=== PATIENT | male | born 1955 | race Caucasian/White ===

== ENCOUNTER 2017-07-08 16:24 | Observation (INO) | payer OTHER ==
--- NOTE | 2017-07-08 16:38 | CPEKG ---
Heart Rate: 78 RR Interval: 769 P-R Interval: 144 QRSD Interval: 106 QT Interval: 376 QTC Interval: 429 P Bigelow: 49 QRS Bigelow: -35 T Wave Bigelow: 23 EKG Severity - BORDERLINE ECG - EKG Impression: SINUS RHYTHM EKG Impression: BORDERLINE IVCD WITH LAD Electronically Signed By: Marcell Leija 08-Jul-2017 16:47:21
--- NOTE | 2017-07-08 16:42 | EDPHY ---
H & P Time Seen by Provider: 07/08/17 16:43 HPI/ROS: CHIEF COMPLAINT: Chest tightness HISTORY OF PRESENT ILLNESS: This 62-year-old man has a history of hypertension on lisinopril and hydrochlorothiazide. He describes having chest tightness that lasted about an hour every couple of weeks for the last several months. Today started in the middle of the day around noon and has lasted until now. He describes central chest tightness which was associated with "a lot more work than usual going up the stairs "and shortness of breath with exertion. He went up 2 flights of stairs and said that if he had to go up a 3rd flight he would have had to stop to rest which is very unusual for him. No radiation. No diaphoresis. No nausea vomiting. REVIEW OF SYSTEMS: Eye: no change in vision ENT: no sore throat Cardiac: No palpitations or syncope Pulmonary: No cough or hemoptysis Abdomen: no vomiting, diarrhea, abdominal pain Musculoskeletal: No leg pain or leg swelling Skin: no rash Neuro: no headache Constitutional: no fever : no urinary symptoms A comprehensive 10 point review of systems is otherwise negative aside from elements mentioned in the history of present illness. PAST MEDICAL HISTORY: Hypertension, unknown cholesterol, negative for diabetes Family history includes coronary disease with his mother having angina in her late 40s and eventually dying of an CT, negative for venous thromboembolism Social history: Nonsmoker, no recent travel or immobilization General Appearance: Alert and conversant, cooperative. Eyes: No scleral icterus. ENT, Mouth: Normal mucous membranes. Respiratory: Normal respiratory effort, breath sounds equal, lungs are clear to auscultation. Cardiovascular: Regular rate and rhythm. Gastrointestinal: Abdomen is soft and non tender. Neurological: Alert and oriented x3. Normally conversant. Face symmetric, normal movement and sensation in all extremities. Skin: Warm and dry, no rashes. Musculoskeletal: No peripheral edema and no joint swelling. Psychiatric: Not agitated. Emergency Department course/MDM: Oral aspirin. Moderate suspicion for acute coronary syndrome given family history, hypertension, exertional symptoms. Chest x-ray D-dimer and troponin. 1831: Results discussed, plan for admission for further testing and risk stratification 1904: Text communication with Andrzej who accepts admission. Smoking Status: Never smoked Constitutional: Initial Vital Signs Temperature (C) 36.3 C 07/08/17 16:29 Heart Rate 80 07/08/17 16:29 Respiratory Rate 18 07/08/17 16:29 Blood Pressure 177/108 H 07/08/17 16:29 O2 Sat (%) 97 07/08/17 16:29 O2 Delivery Mode Room Air Allergies/Adverse Reactions: No Known Allergies Allergy (Unverified 07/08/17 16:28) Home Medications: Medication Instructions Recorded Hydrochlorothiazide 07/08/17 LORAZEPAM 07/08/17 Lisinopril 07/08/17 Medical Decision Making - Diagnostics EKG Interpretation: 12-lead EKG interpreted by me; official reading is in trace master. My interpretation is sinus rhythm rate 78 with intraventricular conduction delay QRS duration 106. Imaging Results: Imaging Impressions Chest X-Ray 07/08/17 17:07 Impression: Mild dependent interstitial edema suspected at the lung bases. Consider mild fluid overload. Differential Diagnosis: Differential diagnosis considered for chest pain including but not limited to myocardial ischemia, aortic dissection, pericarditis, pulmonary embolus, chest wall pain, pleural inflammation and pulmonary infectious causes. - Data Points Laboratory Results: Laboratory Results 07/08/17 16:34 07/08/17 16:34 07/08/17 07/08/17 07/08/17 16:34 16:34 16:34 WBC RBC Hgb Hct MCV MCH MCHC RDW Plt Count MPV Neut % (Auto) Lymph % (Auto) [place] % (Auto) Eos % (Auto) Baso % (Auto) Nucleat RBC Rel Count Absolute Neuts (auto) Absolute Lymphs (auto) Absolute Monos (auto) Absolute Eos (auto) Absolute Basos (auto) Absolute Nucleated RBC Immature Gran % Immature Gran # D-Dimer 0.55 ug/mLFEU H ug/mLFEU (0.00-0.50) Sodium 142 mEq/L mEq/L (134-144) Potassium 3.9 mEq/L mEq/L (3.5-5.2) Chloride 102 mEq/L mEq/L (97-110) Carbon Dioxide 25 mEq/l mEq/l (22-31) Anion Gap 15 mEq/L mEq/L (8-16) BUN 13 mg/dL mg/dL (7-23) Creatinine 0.9 mg/dL mg/dL (0.7-1.3) Estimated GFR > 60 Glucose 95 mg/dL mg/dL (70-100) Calcium 9.4 mg/dL mg/dL (8.5-10.4) Troponin I < 0.012 ng/mL ng/mL (0.000-0.034) NT-Pro-B Natriuret Pep 399 pg/mL H pg/mL (0-125) 07/08/17 16:34 WBC 5.61 10^3/uL 10^3/uL (3.80-9.50) RBC 4.10 10^6/uL L 10^6/uL (4.40-6.38) Hgb 14.7 g/dL g/dL (13.7-17.5) Hct 40.2 % % (40.0-51.0) MCV 98.0 fL fL (81.5-99.8) MCH 35.9 pg H pg (27.9-34.1) MCHC 36.6 g/dL g/dL (32.4-36.7) RDW 11.6 % % (11.5-15.2) Plt Count 197 10^3/uL 10^3/uL (150-400) MPV 10.0 fL fL (8.7-11.7) Neut % (Auto) 74.1 % % (39.3-74.2) Lymph % (Auto) 13.9 % L % (15.0-45.0) [place] % (Auto) 10.2 % % (4.5-13.0) Eos % (Auto) 0.4 % L % (0.6-7.6) Baso % (Auto) 0.9 % % (0.3-1.7) Nucleat RBC Rel Count 0.0 % % (0.0-0.2) Absolute Neuts (auto) 4.16 10^3/uL 10^3/uL (1.70-6.50) Absolute Lymphs (auto) 0.78 10^3/uL L 10^3/uL (1.00-3.00) Absolute Monos (auto) 0.57 10^3/uL 10^3/uL (0.30-0.80) Absolute Eos (auto) 0.02 10^3/uL L 10^3/uL (0.03-0.40) Absolute Basos (auto) 0.05 10^3/uL 10^3/uL (0.02-0.10) Absolute Nucleated RBC 0.00 10^3/uL 10^3/uL (0-0.01) Immature Gran % 0.5 % % (0.0-1.1) Immature Gran # 0.03 10^3/uL 10^3/uL (0.00-0.10) D-Dimer Sodium Potassium Chloride Carbon Dioxide Anion Gap BUN Creatinine Estimated GFR Glucose Calcium Troponin I NT-Pro-B Natriuret Pep Medications Given: Discontinued Medications Aspirin (Aspirin) 324 mg PO EDNOW ONE Stop: 07/08/17 17:10 Last Admin: 07/08/17 17:16 Dose: 324 mg Departure - Departure Disposition: [facility] Inpatient Acute Clinical Impression: Chest pain Qualifiers: Chest pain type: unspecified Qualified Code(s): R07.9 - Chest pain, unspecified Condition: Good Referrals: TRISTON VACA [Primary Care Provider] - As per Instructions
[2017-07-08 17:02] LABS: % IMMATURE GRANULYOCYTES 0.5 % (0.0-1.1); ABSOLUTE IMMATURE GRANULOCYTES 0.03 10^3/uL (0.00-0.10); ADD DIFF? NO; ADD MORPH? NO; ADD SCAN? NO; ATYPICAL LYMPHOCYTE FLAG 0 (0-99); FRAGMENT RBC FLAG 0 (0-99); HEMATOCRIT 40.2 % (40.0-51.0); HEMOGLOBIN 14.7 g/dL (13.7-17.5); LEFT SHIFT FLG 0 (0-99); LIPEMIA HEMOLYSIS FLAG 90 (0-99); MEAN CELL HEMOGLOBIN 35.9 pg (27.9-34.1); MEAN CELL HEMOGLOBIN CONCENTR. 36.6 g/dL (32.4-36.7); PLATELET CLUMPS FLAG 0 (0-99); PLATELET COUNT 197 10^3/uL (150-400); RED CELL DISTRIBUTION WIDTH 11.6 % (11.5-15.2)
[2017-07-08] MEDS ORDERED: ASPIRIN 81 MG CHEWABLE TAB PO ONE (17:09)
[2017-07-08 17:39] LABS: ANION GAP 15 mEq/L (8-16); CALCIUM 9.4 mg/dL (8.5-10.4); CARBON DIOXIDE 25 mEq/l (22-31); CHLORIDE 102 mEq/L (97-110); CREATININE 0.9 mg/dL (0.7-1.3); GLOMERULAR FILTRATION RATE > 60; GLUCOSE 95 mg/dL (70-100); POTASSIUM 3.9 mEq/L (3.5-5.2); SODIUM 142 mEq/L (134-144)
[2017-07-08 17:50] LABS: TROPONIN I < 0.012 ng/mL (0.000-0.034)
[2017-07-08] MEDS ORDERED: ONDANSETRON 4 MG/2 ML VIAL IVP PRN (20:20)
[2017-07-08] MEDS ORDERED: ONDANSETRON DISINTEGRATING 4 MG TAB PO PRN (20:20)
[2017-07-08] MEDS ORDERED: ACETAMINOPHEN 325 MG TAB PO PRN (20:20)
[2017-07-08] MEDS ORDERED: NITROGLYCERIN 0.4 MG BTL SL PRN (23:00)
[2017-07-08] MEDS ORDERED: MBX SOLN 30 ML BOTTLE PO PRN (23:00)
[2017-07-08] MEDS ORDERED: LORazepam 0.5 MG TAB PO PRN (23:06)
--- NOTE | 2017-07-09 00:27 | PDGENHP ---
History and Physical - Chief Complaint Chest pain - History of Present Illness 62 yo M w/ hx of anxiety and depression presents with chest discomfort. Patient reports feeling mild chest tightness while walking up the stairs today. He describes it as central tightness without radiation or significant associated symptoms. Discomfort does not vary with level of exertion. He has no prior history of heart disease although his mother had CAD diagnosed in her 40's. He drinks about four alcoholic beverages per night but has never used tobacco products. In the ED troponin has been negative x2 and ECG without signs of ischemia. He is being admitted for observation and risk stratification. History Information - Allergies/Home Medication List Allergies/Adverse Reactions: No Known Allergies Allergy (Verified 07/08/17 19:38) Home Medications: Hydrochlorothiazide [HCTZ (*)] 25 mg PO DAILY 07/08/17 [Last Taken Unknown] LORazepam [Ativan (*)] 0.5 mg PO HS PRN 07/08/17 [Last Taken Unknown] Lisinopril [Zestril 40 mg (*)] 40 mg PO DAILY 07/08/17 [Last Taken Unknown] I have personally reviewed and updated: family history, medical history - Past Medical History Additional medical history: Anxiety, depression - Family History Positive for: CAD (Mother in her 40's) - Social History Smoking Status: Never smoked Alcohol Use: Heavy (4 drinks nightly) Review of Systems Review of Systems: ROS: 10pt was reviewed & negative except for what was stated in HPI & below Physical Exam Physical Exam: Temp Pulse Resp BP Pulse Ox 36.3 C 68 16 152/114 H 95 07/08/17 23:25 07/08/17 23:25 07/08/17 23:25 07/08/17 23:25 07/08/17 23:25 Constitutional: no apparent distress, not in pain Eyes: PERRL, EOMI Ears, Nose, Mouth, Throat: moist mucous membranes, no oral mucosal ulcers Cardiovascular: regular rate and rhythym, no murmur, rub, or gallop Respiratory: no respiratory distress, clear to auscultation Gastrointestinal: normoactive bowel sounds, soft, non-tender abdomen Skin: warm, normal color Neurologic: AAOx3, CN II-XII Intact Psychiatric: interacting appropriately, anxious Lab Data & Imaging Review 07/08/17 16:34 07/08/17 16:34 WBC 5.61 10^3/uL (3.80-9.50) 07/08/17 16:34 RBC 4.10 10^6/uL (4.40-6.38) L 07/08/17 16:34 Hgb 14.7 g/dL (13.7-17.5) 07/08/17 16:34 Hct 40.2 % (40.0-51.0) 07/08/17 16:34 MCV 98.0 fL (81.5-99.8) 07/08/17 16:34 MCH 35.9 pg (27.9-34.1) H 07/08/17 16:34 MCHC 36.6 g/dL (32.4-36.7) 07/08/17 16:34 RDW 11.6 % (11.5-15.2) 07/08/17 16:34 Plt Count 197 10^3/uL (150-400) 07/08/17 16:34 MPV 10.0 fL (8.7-11.7) 07/08/17 16:34 Neut % (Auto) 74.1 % (39.3-74.2) 07/08/17 16:34 Lymph % (Auto) 13.9 % (15.0-45.0) L 07/08/17 16:34 [place] % (Auto) 10.2 % (4.5-13.0) 07/08/17 16:34 Eos % (Auto) 0.4 % (0.6-7.6) L 07/08/17 16:34 Baso % (Auto) 0.9 % (0.3-1.7) 07/08/17 16:34 Nucleat RBC Rel Count 0.0 % (0.0-0.2) 07/08/17 16:34 Absolute Neuts (auto) 4.16 10^3/uL (1.70-6.50) 07/08/17 16:34 Absolute Lymphs (auto) 0.78 10^3/uL (1.00-3.00) L 07/08/17 16:34 Absolute Monos (auto) 0.57 10^3/uL (0.30-0.80) 07/08/17 16:34 Absolute Eos (auto) 0.02 10^3/uL (0.03-0.40) L 07/08/17 16:34 Absolute Basos (auto) 0.05 10^3/uL (0.02-0.10) 07/08/17 16:34 Absolute Nucleated RBC 0.00 10^3/uL (0-0.01) 07/08/17 16:34 Immature Gran % 0.5 % (0.0-1.1) 07/08/17 16:34 Immature Gran # 0.03 10^3/uL (0.00-0.10) 07/08/17 16:34 D-Dimer 0.55 ug/mLFEU (0.00-0.50) H 07/08/17 16:34 Sodium 142 mEq/L (134-144) 07/08/17 16:34 Potassium 3.9 mEq/L (3.5-5.2) 07/08/17 16:34 Chloride 102 mEq/L (97-110) 07/08/17 16:34 Carbon Dioxide 25 mEq/l (22-31) 07/08/17 16:34 Anion Gap 15 mEq/L (8-16) 07/08/17 16:34 BUN 13 mg/dL (7-23) 07/08/17 16:34 Creatinine 0.9 mg/dL (0.7-1.3) 07/08/17 16:34 Estimated GFR > 60 07/08/17 16:34 Glucose 95 mg/dL (70-100) 07/08/17 16:34 Calcium 9.4 mg/dL (8.5-10.4) 07/08/17 16:34 Troponin I < 0.012 ng/mL (0.000-0.034) 07/08/17 22:10 NT-Pro-B Natriuret Pep 399 pg/mL (0-125) H 07/08/17 16:34 Imaging Review: CXR read as mild interstitial edema possible at the bases, seems very subtle on my interpretation. Visualized and Interpreted EKG results: Yes EKG Interpretation: Positive for: normal sinsus rhythm, NS ST wave abnormalities Assessment & Plan Assessment: 62 yo M w/ hx of HTN, anxiety, and depression presents with chest pain. Plan: 1. Chest pain - Described as "tightness" without associated symptoms and no relation to exertion or rest. Cardiac enzymes and ECG unremarkable so far. He has no personal hx of CAD but does have a significant family hx and ETOH abuse hx. SHAHANA score of 1 denoting generally low risk. It is possible that his poorly controlled anxiety and ETOH abuse are playing a role in his presentation. - Monitor on telemetry, trend cardiac enzymes - Will order treadmill stress test for inpatient risk stratification - GI cocktail PRN ordered as therapeutic trial for GI etiology 2. HTN - On lisinopril and HCTZ as an outpatient. BP elevated here (160/110) in setting of significant anxiety. Unclear if elevated BP could be contributing to above. - Will address anxiety with low dose Ativan and monitor BP, may need PRN medications if remains elevated 3. Depression, anxiety - These issues seem poorly controlled and tied to ETOH use. Diet - NPO pending risk stratification Code - Full Ppx - LMWH Dispo - Admit to observation status
[2017-07-09] MEDS ORDERED: LORazepam 0.5 MG TAB PO ONE (01:11)
[2017-07-09 05:22] VITALS: TEMP 98.1
[2017-07-09 05:55] LABS: HEMATOCRIT 35.5 % (40.0-51.0); HEMOGLOBIN 13.1 g/dL (13.7-17.5); MEAN CELL HEMOGLOBIN 36.3 pg (27.9-34.1); MEAN CELL HEMOGLOBIN CONCENTR. 36.9 g/dL (32.4-36.7); MEAN CELL VOLUME 98.3 fL (81.5-99.8); RED BLOOD CELL COUNT 3.61 10^6/uL (4.40-6.38); RED CELL DISTRIBUTION WIDTH 11.7 % (11.5-15.2)
[2017-07-09 06:18] LABS: ANION GAP 11 mEq/L (8-16); CALCIUM 8.6 mg/dL (8.5-10.4); CARBON DIOXIDE 24 mEq/l (22-31); CHLORIDE 105 mEq/L (97-110); CREATININE 0.9 mg/dL (0.7-1.3); GLOMERULAR FILTRATION RATE > 60; GLUCOSE 74 mg/dL (70-100); POTASSIUM 3.7 mEq/L (3.5-5.2); SODIUM 140 mEq/L (134-144)
[2017-07-09 06:29] LABS: TROPONIN I < 0.012 ng/mL (0.000-0.034)
[2017-07-09 08:28] VITALS: BP 130/87; PULSE 67; RESP 15; O2SAT 93
[2017-07-09] MEDS ORDERED: ENOXAPARIN 40 MG/0.4 ML SYR SC SCH (09:00)
[2017-07-09] MEDS ORDERED: LORazepam 0.5 MG TAB PO PRN (12:57)
[2017-07-09] MEDS ORDERED: FUROSEMIDE 20 MG TAB PO ONE (13:52)
--- NOTE | 2017-07-09 14:00 | PDDCSUM ---
Discharge Summary Discharge Summary: 62 yo male admitted with chest pain. W/u negative to include EKG, troponin x 3, and telemetry. He had a treadmill stress test and official report is pending. Unofficial result is unremarkable. He does not have any CP this morning or SOB. He denies any pedal edema or palpitations He does report intermittent SOB worse with exertion. His CXR yesterday is c/w mild pulm edema. He is on RA and has been since admission. He has not received Lasix. BNP was mildly elevated He has a hx of 4 ETOH drinks daily From a ACS perspective, he likely does not have any acutely reversible causes as he does not have any CP and w/u has been negative Given his mild pulm edema and mildly elevated BNP, we discussed obtaining a TTE for further eval. He is agreeable to take a one time dose of Lasix but wants to wait on the TTE until he see his outpatient provider. He is just feeling like he wants to go home and not obtain further w/u right now As there is no e/o of ACS and he is on RA and not symptomatic, I will give him a one time dose of Lasix 20mg daily and he will f/u with his PCP w/i the week He has a hx of chronic ETOH (1 beer, 3 vodka nightly) due to anxiety. He will f/ u with PCP. He does not have any e/o WD DDX: #chest pain #?CHF #HTN, no changes to meds were provided #Anxiety #Depression Exam: VSS NAD AAOX3 RRR CTA B S/NT/ND NO EDEMA D/C MEDS: SEE MED REC TOTAL TIME SPENT ON D/C IS 40 MINUTES
--- NOTE | 2017-07-09 15:05 | ASDISCHSUM ---
Discharge Information Plan Status:Home with No Needs Medically Cleared to Leave:07/08/2017 Discharge Date:07/09/2017 02:37 PM CM D/C Disposition:Home, Routine, Self-Care ADT D/C Disposition:Home, Routine, Self-Care Projected Discharge Date:07/09/2017 02:37 PM Transportation at D/C: Discharge Delay Reason: Follow-Up Date:07/09/2017 02:37 PM Discharge Slot: Final Diagnosis: Placement Information Patient Contact Information Contact Name:MAINOR Relationship:Sister Address: Work Phone: [place]:DENNIS Rivas Phone: /Zip Code:[place] Email: Financial Information Financial Class:HMO and PPO Plans Primary Plan Desc:HMO [employer] Primary Plan Number:[id number] Secondary Plan Desc: Secondary Plan Number: Assessment Information Intervention Information
--- NOTE | 2017-07-09 20:21 | CPR ---
[f rep st] NONINVASIVE CARDIAC PROCEDURE REPORT DATE OF PROCEDURE: 07/09/2017 PROCEDURE: Exercise treadmill test. INDICATION: The patient is a 62-year-old male who presented to the hospital with chest discomfort wh ile carrying a computer up a flight of stairs. DESCRIPTION OF PROCEDURE: Consent was obtained and the patient was placed on continuous telemetry. His resting EKG revealed normal sinus rhythm without any ST-T wave changes to suggest ischemia. The patient had difficulty walking on the treadmill and therefore it did limit the duration of the study. He walked for 6 minutes without any associated chest discomfort. There was a lot of artifact durin g the study. There was a lot of artifact while he was walking on the treadmill, which was unavoidabl e. He did appear to remain in normal sinus rhythm without any ST-T wave changes to suggest ischemia. Six minutes into recovery, he did develop diffuse T-wave flattening without chest discomfort. His blood pressure at rest was 152/94. His blood pressure peaked at 208/90 at peak exertion. His blood pressure returned to baseline 7 minutes into the recovery phase. PLAN: The patient had difficulty walking on the treadmill, which did limit this test. He was able t o walk for 6 minutes and did reach 100% of his age-predicted maximum heart rate. He did not have any exertional chest discomfort. There were no ST-T wave changes to suggest ischemia with exercise, but he did develop T-wave flattening 5 minutes into recovery. No diagnostic changes to suggest obstruct chon coronary disease. His blood pressure was elevated at rest and with peak exertion. Consider titr ation of his hypertensive medications. /[id number]/MODL
[2017-07-10] MEDS ORDERED: LISINOPRIL 40 MG TAB PO SCH (09:00)
[2017-07-10] MEDS ORDERED: HYDROCHLOROTHIAZIDE 25 MG TAB PO SCH (09:00)
== END 2017-07-09 14:37 | disposition home or self-care (01) ==
LOC: F2W 20:20
PROVIDERS: ADMIT Internal Medicine; ATTEND Family Medicine
DX: R07.9 Chest pain, unspecified (principal); I10 Essential (primary) hypertension; F32.9 Major depressive disorder, single episode, unspecified; F41.9 Anxiety disorder, unspecified; F10.10 Alcohol abuse, uncomplicated; Z82.49 Family history of ischemic heart disease and other diseases of the circulatory system
CPT/HCPCS: 71020; 93005; 93017; 99285; G0378

== ENCOUNTER 2018-05-15 19:02 | Emergency (ER) | payer SELFPAY ==
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
[2018-05-15] MEDS: TDAP ADULT 0.5 ML INJ (BOOSTRIX) IM ONE (20:46)
[2018-05-15 20:53] VITALS: BP 145/81
== END 2018-05-15 20:53 | disposition home or self-care (01) ==
DX: S01.81XA Laceration without foreign body of other part of head, initial encounter (principal); S40.211A Abrasion of right shoulder, initial encounter; V17.0XXA Pedal cycle driver injured in collision with fixed or stationary object in nontraffic accident, initial encounter; Y93.55 Activity, bike riding; Y92.480 Sidewalk as the place of occurrence of the external cause; I10 Essential (primary) hypertension; F41.9 Anxiety disorder, unspecified; F10.20 Alcohol dependence, uncomplicated